=== PATIENT | male | born 1960 | race Caucasian/White ===

== ENCOUNTER 2019-05-27 09:16 | Emergency (ER) | payer OTHER ==
[~2019-05-27] VITALS: Ht 172.7 cm; Wt 90.7 kg
[2019-05-27] MEDS ORDERED: MOBIC15 MG PO (10:29)
[2019-05-27] MEDS ORDERED: CYCLOBENZAPRINE5 MG PO (10:29)
[2019-05-27 10:36] VITALS: BP 139/70
== END 2019-05-27 10:37 | disposition home or self-care (01) ==
LOC: M.ERS 09:16
DX: S76.011A Strain of muscle, fascia and tendon of right hip, initial encounter (principal); X50.1XXA Overexertion from prolonged static or awkward postures, initial encounter; Y93.01 Activity, walking, marching and hiking; Y92.89 Other specified places as the place of occurrence of the external cause; Y99.8 Other external cause status

== ENCOUNTER → 2021-03-07 | Day surgery (SDC) | payer OTHER ==
[~2021-03-07] MED LIST: COLESTID1 GM PO; CYCLOBENZAPRINE5 MG PO; MOBIC15 MG PO; ROXICODONE5 MG PO
[2021-03-07 06:41] LABS: HEMATOCRIT 39.1 % (42.0-52.0); HEMOGLOBIN 13.6 gm/dL (14.0-18.0); MCH 31.8 pg (26.0-34.0); MCHC 34.7 g/dL (28.0-37.0); MCV 91.4 fL (80.0-100.0); MPV 8.5 fl. (7.2-11.1); RBC 4.27 mil/uL (4.50-6.00); RDW-CV 14.2 % (10.5-14.5); WBC 6.5 thou/uL (4.0-11.0)
[2021-03-07 06:46] LABS: CALCIUM 8.3 mg/dL (8.5-10.1); POTASSIUM 3.7 mmol/L (3.5-5.1)
--- NOTE | 2021-03-07 09:51 | EKG ---
[place] [address] ELECTROCARDIOGRAM REPORT Name: JUAN LEMUSRYL Ariadna Room: [facility]#: [id number] Admission: 03/07/21 Attend Phys: Tatiana Huffman, Discharge: Date of : 62 Date of Service: 03/07/21722 Report #: [id number] THIS REPORT FOR: //name// [facility] Test Date: 2021-03-07 Test Time: 07:23:34 Pat Name: NENITA LEMUS Department: Room: Gender: Hospice Patient Care Secretary: : 1960 Requested By: Tatiana Huffman Order Number: [id number] Reading MD: Bldae Olivo Measurements Intervals Anderson Rate: 55 P: 47 VA: 176 QRS: -45 QRSD: 108 T: 34 QT: 441 QTc: 422 Interpretive Statements Sinus rhythm Atrial premature complex LAD, consider left anterior fascicular block Minimal ST elevation, anterior leads No previous ECG available for comparison Electronically Signed On 03-07-2021 9:51:10 CDT by Blade Olivo [email or web address] <ELECTRONICALLY SIGNED> By: Blade Olivo MD, [facility] 03/07/21 0951 2 2 Blade Olivo MD, [facility] /EPI
--- NOTE | 2021-03-07 12:26 | OP ---
[address] [address] OPERATIVE REPORT Name: NENITA LEMUS Room: [facility]#: [id number] Admission: 03/07/21 Attend Phys: Tatiana Huffman DO Discharge: Date of : 62 Report #: [id number] THIS REPORT FOR: cc: FAM - No family physician/PCP FAM - No family physician/PCP Tatiana Huffman DO ~ DOC #: [id number] Tatiana Huffman DO DATE OF SURGERY: 03/07/2021 PREOPERATIVE DIAGNOSES: Gallstones and elevated liver enzymes. POSTOPERATIVE DIAGNOSES: Gallstones and elevated liver enzymes. FINDINGS: Distended gallbladder with multiple large stones. There were dense adhesions over the gallbladder as well. Intraoperative cholangiogram was 12 seconds long and did reveal a dilated common bile duct, but there were no signs of any obstruction. Contrast flowed promptly into the duodenum. Hepatic radicals were both seen and were normal in caliber. SURGEON: Tatiana Huffman DO ASSISTANTS: Nickolas Paredes MS4 and Inocencio Ch MS4 PROCEDURE PERFORMED: Laparoscopic cholecystectomy with intraoperative cholangiogram with surgeon interpretation of images and percutaneous liver biopsy. ANESTHESIA: General endotracheal with local and TAP blocks. ESTIMATED BLOOD LOSS: 3. DRAINS: None. SPECIMENS: Gallbladder and liver biopsies. COMPLICATIONS: None. CONDITION: Stable. DISPOSITION: PACU to home. HISTORY OF PRESENT ILLNESS: The patient is a pleasant 60-year-old gentleman who presented to my office with a finding of elevated liver enzymes. He had been on an investigational medication and during part of that trial, blood work was drawn and his liver enzymes were found to be elevated. [place] [address] OPERATIVE REPORT Name: NENITA LEMUS Room: [facility]#: [id number] Admission: 03/07/21 Attend Phys: Tatiana Huffman DO Discharge: Date of : 62 Report #: [id number] then referred to my office. Ultrasound also revealed multiple gallstones. The patient was then consented for laparoscopic cholecystectomy with intraoperative cholangiogram and liver biopsy. Risks discussed included bleeding; infection; pain; scar formation; injury to bowel, liver and bile duct; hernia at the incision sites; need for an open procedure and risks of general anesthesia. The patient understood these risks and elected to proceed. Of note, in preop blood sugar was checked and returned in the range of 460. I returned to speak with the patient as he had not told me of any past medical history. He finally admitted that he was aware that he was hyperglycemic and diabetic, but was not taking any medications or seeing a primary care physician. The patient did receive some insulin in preop and tolerated that well and we were able to move forward with surgery. The patient was strongly encouraged to seek out a primary care physician to treat his untreated and uncontrolled diabetes. DESCRIPTION OF PROCEDURE: The patient was brought to the operating room. He was laid supine on the operating room table. SCDs were placed on bilateral lower extremities. Ancef was given in the perioperative period. General endotracheal anesthesia was induced by anesthesia without difficulty. TAP blocks were then also provided by Anesthesia without issue. Abdomen was prepped and draped in standard sterile fashion. Timeout was performed to verify the patient and procedure. Ten mL of 0.5% Marcaine were injected in the supraumbilical area. Incision was made with an 11-blade. Cautery was used for hemostasis. S retractors were used to visualize the fascia. The fascia was grasped and elevated between 2 Kochers. Fascia was incised using cautery. Peritoneum was bluntly entered using a Unique clamp. Finger was introduced into the abdomen to ensure that there were no tony-incisional adhesions, none were identified. Two stitches of 0 Vicryl placed on the fascia. Marie trocar was introduced and secured with 0 Vicryl stitches. Abdomen was insufflated. The patient was placed head up and tilted left side down. Camera was introduced and a brief anterior abdominal exploration was undertaken with findings of a distended stomach, perhaps indicative of diabetic gastroparesis. The gallbladder was distended and had multiple large stones and there were multiple dense adhesions over the gallbladder. Three 5 mm trocars were then introduced, one in the subxiphoid area and two in the right upper quadrant. Just the edge of the gallbladder was visible and this was grasped and elevated. The dense adhesions were then taken down carefully using cautery until the triangle of Calot was identified. Peritoneum overlying the triangle of Calot was incised using cautery. Duct and artery were then both easily visualized, both were circumferentially dissected free using a [place] dissector. Any tissues posterior to the artery were removed to the liver plate. This then afforded the critical view. Wylie clamp was brought onto the field and the Clement's pouch was grasped. Cholangiogram catheter was introduced into the cystic duct. The patient was returned to the supine position. C-arm was brought onto the field and cholangiogram was performed for approximately 12 seconds. We had prompt visualization of the cystic duct and a dilated common bile [place], [place] [address] OPERATIVE REPORT Name: NENITA LEMUS Room: [facility]#: [id number] Admission: 03/07/21 Attend Phys: Tatiana Huffman DO Discharge: Date of : 62 Report #: [id number] freely flowed into the duodenum. The right and left hepatic radicles were then also visualized. No obstruction or stones was seen in the dilated common bile duct. Wylie clamp and cholangiogram catheter were then removed. The patient was returned to the head up and left side down position. The duct and artery were then both doubly clipped and ligated. Gallbladder was removed from the liver bed utilizing cautery with no further difficulties. Specimen was placed within an EndoCatch bag. A small elvin was then made in the right upper quadrant and percutaneous Bladimir-Cut liver biopsy needle was introduced and three passes of the needle were performed with excellent liver biopsy specimens obtained. These were placed on moistened Telfa and were handed off for permanent pathology. Hemostasis was assured at those wounds. The liver bed was then inspected. There was one small area of bleeding, which was easily controlled with cautery. Clips were inspected. They appeared to be intact. There was no bleeding or leakage noted from the area of the clips. Trocars were removed under direct visualization. There was no bleeding noted from the peritoneum. The abdomen was completely desufflated. Marie trocar was removed and EndoCatch bag was removed after extending the fascial incision due to the excessive size of the stones, multiple stones were palpated. It was then handed off for permanent pathology. Kochers were placed on the fascia of our supraumbilical port. Previously placed 0 Vicryl stitches were removed and a 0 Vicryl stitch was placed in a [id number] fashion with excellent approximation of the fascia. An additional 10 mL of 0.5% Marcaine were injected in the fascia. This wound was closed in a layered fashion using deep and superficial stitches of 3-0 Vicryl in an inverted interrupted fashion. All skin wounds were closed with a 4-0 Monocryl. A total of 30 mL of 0.5% Marcaine were used to anesthetize the wounds. The wounds were then cleansed and covered with Dermabond. The patient was then allowed to awaken from anesthesia, was extubated, and transported to the recovery room with no further difficulties. Counts were correct at the conclusion of the case. DO JW Lopez/KATEY <ELECTRONICALLY SIGNED> By: Tatiana Huffman DO 03/07/21 1226 0845 0941Chkristin Huffman DO /deborah
--- NOTE | 2021-03-09 11:07 | PATH ---
[address] [address] PATHOLOGY RPT PROCEDURE Name: NENITA DIAS Room: [facility].Shantel.#: [id number] Admission: 03/07/21 Date of : 62 Discharge: Report #: [id number] Path Case #: [id number] [facility] Accession Number: [id number] . 01 Material submitted: . PART A: gallbladder - GALLBLADDER PART B: liver - LIVER BIOPSY . 01 Clinical history: . LAPAROSCOPIC CHOLECYSTECTOMY WITH GRAMS BIOPSY LIVER (CLOSED) CALCULUS OF BIAL DUCT WITH OBSTRUCTION WITH OR WITHOUT CHOLANGITIS, CHOLECYSTITIS TRANSAMINITIS, ALKALINE PHOSPHATASE ELEVATION LAPAROSCOPIC CHOLECYSTECTOMY WITH GRAMS . 02 Diagnosis: A. Gallbladder: - Chronic and acute cholecystitis, cholesterolosis and cholelithiasis with benign and hyperplastic lymph node. . B. Liver biopsy: - Pending. See comment. SUNI 03/08/2021 0404 Local . 02 Comment: Interpretation of specimen B is pending and will be the subject of an addendum report. (FELICITAS/db; 03/08/2021) . 02 Electronically signed: . Kurtis Olivas MD, Pathologist NPI- [id number] . 01 Gross description: . A. Fixative: Formalin Labeled: Gallbladder Specimen received: Intact gallbladder Dimensions: 8.5 x 3.5 x 3.5 cm Serosa: Martha-de los santos Lymph node: Present, pink-de [place] santos measuring 1.5 x 0.8 x 0.6 cm Mucosa: Velvety green bile-stained with gray streaks Average wall thickness: 0.1-0.3 cm Calculi: Multiple gray calculi ranging from 0.1-1.0 cm A1- Actuary Clerk cystic duct margin and lymph node A2-entry level account representative sections of body neck and fundus . B. Received in formalin labeled "Nenita Dias and liver biopsy[place] [address] PATHOLOGY RPT PROCEDURE Name: ROLDAN DIASL Ariadna Room: [facility]#: [id number] Admission: 03/07/21 Date of : 62 Discharge: Report #: [id number] Path Case #: [id number] Received are multiple liver cores ranging from 0.4-1.0 cm in length and 0.1 cm in diameter. The specimen is entirely submitted in cassette B1.(FELI; 03/07/2021) . . BLJ/BLJ 03/07/2021 2321 Local . 02 Pathologist provided ICD-10: K80.12 . 02 CPT . 521774 Specimen Comment: A courtesy copy of this report has been sent to [phone] Specimen Comment: Report sent to Performed at: [address], [place] [id number] MD Troy Rosado MD Phone: [phone] Performed at: 02 [facility] [address], [place], [place] [id number] MD Kurtis Olivas MD Phone: [phone]
== END | disposition home or self-care (01) ==
LOC: M.SUR 05:54
PROVIDERS: ATTEND Surgery
DX: K80.12 Calculus of gallbladder with acute and chronic cholecystitis without obstruction (principal); R59.0 Localized enlarged lymph nodes; R94.5 Abnormal results of liver function studies; K66.0 Peritoneal adhesions (postprocedural) (postinfection); Z79.899 Other long term (current) drug therapy

== ENCOUNTER → 2021-03-16 | Outpatient (CLI) | payer OTHER | LOC: M.ULTRA 16:00 | PROVIDERS: ATTEND Specialist | DX: R60.9 Edema, unspecified (principal); E11.9 Type 2 diabetes mellitus without complications ==